=== PATIENT | male | born 1950 | race Caucasian/White ===

== ENCOUNTER 2019-11-12 09:57 | Inpatient (IN) | payer MEDICARE ==
[~2019-11-12] VITALS: Ht 177.8 cm; Wt 84.1 kg
--- NOTE | ~2019-11-12 | EC ---
PATIENT:MARIA ELENA ZALDIVAR DATE OF SERVICE: 11/12/19 SEX: M MEDICAL RECORD: [id number] DATE OF : [birth year] LOCATION:D.M2 D.212 AGE OF PATIENT: 69 ADMISSION DATE: 11/12/19 REFERRING PHYSICIAN: INTERPRETING PHYSICIAN: LENNY ERWIN MD ECHOCARDIOGRAM REPORT ECHO CHARGES 4 ECHO COMPLETE Date: 11/13/19 CLINICAL DIAGNOSIS: ATRIAL FIB ECHOCARDIOGRAPHIC MEASUREMENTS (adult normal given) AC root (d.<3.7cm) 3.3 cm LV Septum d (<1.2 cm> 10 cm Valve Excursion 1.4 cm LV Septum (systole) 1.3 cm Left Atria (s.<4.0cm> 5.2 cm LVPW d(<1.2cm) 0.90 cm RV (d.<2.3cm) 5.6 cm LVPW (sytole) 1.0 cm LV diastole(<5.6CM) 7.7 cm MV E-F(>70mm/sec) cm LV systole 6.5 cm LVOT Diameter 2.3 cm MV exc.(>10mm) 2.4 cm Est.ejection fraction (50-75%) % DOPPLER: LVIT cm/sec A cm/sec E cm/sec LA cm/sec RVSP 29 mmHg LVOT 91 cm/sec AOP1/2T m/s Asc. Ao 123 cm/sec RVOT 47 cm/sec RA cm/sec PA cm/sec AV Gradient Peak 6.07 mmHg AV Mean 3.90 mmHg AV Area 2.7 cm MV Gradient Peak 7.36 mmHg MV Mean 2.02 mmHg MV Area cm COMMENTS: Pharmacy Stock Clerk: Ammon COPELAND Rn Transplant: 1 Dr. Erwin TAPE# PACS Pericardial Effusion N DATE OF SERVICE: 11/13/2019 ECHOCARDIOGRAM FINDINGS: 1. Left ventricular chamber size is moderate to severely dilated. Left ventricular systolic function is severely reduced at 25% to 30%. 2. Left atrium is enlarged at 5.2 cm. Right atrium and right ventricular chamber sizes are as well moderately dilated. 3. Valvular structures have normal structure and motion. ECHOCARDIOGRAM REPORT [id number] MARIA ELENA ZALDIVAR 4. Doppler interrogation reveals moderate mitral regurgitation, zulk-ow-[id number] tricuspid regurgitation. No other valvular insufficiency or stenosis. Pulmonary systolic pressure is preserved at 29 mmHg. 5. No evidence of pericardial effusion or left ventricular thrombus. 6. The patient is in atrial fibrillation during the study. TRANSINT:[id number] Voice Confirmation ID: [id number] DOCUMENT ID: [id number] LENNY ERWIN MD CC: [id number] DICTATION DATE: 11/13/19 1639 AUTO DISMANTLER: 11/14/19 0031 ADM IN [facility] [address] [id number]
[~2019-11-12 09:57] MED LIST: FERROUS SULFAT325 MG PO; LASIX20 MG PO; MAGNESIUM OXID500 MG PO; MILK THISTLE PO; POTASSIUM99 M1 PO; [UNRECOGNIZED DRUG - OTHER]; [UNRECOGNIZED DRUG - OTHER] PO
[2019-11-12 10:24] LABS: BASOPHILS 0.2 % (0-2); EOSINOPHILS 0.3 % (0-7); HEMOGLOBIN 10.2 g/dL (13.5-17.5); IMMATURE GRANULOCYTES 0.2 % (0-5); LYMPHOCYTES 9.2 % (15-50); MCH 24.4 pg (26.0-34.0); MCV 81.3 fL (80.0-100.0); MONOCYTES 9.3 % (2-11); NEUTROPHILS 80.8 % (40-80); RBC 4.18 10x6/uL (4.20-6.10); WBC 9.5 10x3/uL (4.8-10.8)
[2019-11-12 10:26] LABS: PLATELET COUNT 163 10x3/uL (130-400)
[2019-11-12 10:31] LABS: CALC OSMOLALITY 275 mosm/kg (275-300); CALCIUM 8.8 mg/dL (8.5-10.1); CARBON DIOXIDE 22.1 mmol/L (21.0-32.0); CHLORIDE - SERUM 100 mmol/L (98-107); CREATININE - SERUM 1.5 mg/dL (0.6-1.3); GLUCOSE 150 mg/dL (74-106); POTASSIUM - SERUM 4.4 mmol/L (3.5-5.1); SODIUM 132 mmol/L (136-145); UREA NITROGEN 34 mg/dL (7-18); eGFR NON AFRICAN AMERICAN 49 mL/min (90-120)
[2019-11-12 10:37] LABS: APTT 28.8 SECONDS (22.8-39.4); INR 1.4 (0.85-1.17)
[2019-11-12 10:48] LABS: ALBUMIN 3.5 g/dL (3.4-5.0); ALKALINE PHOSPHATASE 101 U/L (30-120); ALT (SGPT) 81 U/L (10-68); BILIRUBIN - TOTAL 1.98 mg/dL (0.2-1.3); CKMB 2.1 U/L (0.0-3.6); CREATINE KINASE 214 UL (21-232); LIPASE 324 U/L (73-393); PRO BNP 5082 pg/mL (0-125); PROTEIN - SERUM 7.3 g/dL (6.4-8.2); TROPONIN-I 0.029 ng/mL (0.000-0.060)
[2019-11-12 13:05] VITALS: BP 119/65
--- NOTE | 2019-11-12 14:10 | NUR ---
RECIEVED TELEPHONE REPORT
[2019-11-12 14:31] VITALS: BP 107/51
[2019-11-12 14:49] LABS: % SATURATION 5 % (15-55); IRON 27 ug/dl (35-150); TOTAL IRON BIND CAPACITY 479 ug/dl (260-445)
[2019-11-12 14:55] LABS: UNSAT IRON BIND CAPACITY 452 ug/dl (150-375)
[2019-11-12 18:37] VITALS: BP 109/62
[2019-11-12 20:00] VITALS: BP 122/69
--- NOTE | 2019-11-12 20:00 | NUR ---
REPORT RECIEVED AND INITIAL ROUNDS COMPLETED. PT RESTING IN BED WITH NO DISTRESS. SEE SHIFT ASSESSMENT. CPOC. CALL LIGHT IN REACH. SR UP X 2.
[2019-11-13] VITALS: BP 124/80
[2019-11-13 04:00] VITALS: BP 117/69; BP 24/80; BMI 26.6
[2019-11-13 06:27] LABS: ALBUMIN 3.1 g/dL (3.4-5.0); ANION GAP 16.2 mmol/L (8-16); BILIRUBIN - TOTAL 1.45 mg/dL (0.2-1.3); CALCIUM 7.9 mg/dL (8.5-10.1); CARBON DIOXIDE 19.6 mmol/L (21.0-32.0); CREATININE - SERUM 1.4 mg/dL (0.6-1.3); POTASSIUM - SERUM 3.8 mmol/L (3.5-5.1); PROTEIN - SERUM 6.4 g/dL (6.4-8.2)
--- NOTE | 2019-11-13 07:00 | NUR ---
WALKING ROUNDS COMPLETED AND REPORT GIVEN TO DAY NURSE. PT RESTING IN BED. NO DISTRESS. CPOC.
[2019-11-13 07:27] LABS: HEMATOCRIT 31.3 % (42.0-54.0); HEMOGLOBIN 9.5 g/dL (13.5-17.5); MCH 24.3 pg (26.0-34.0); MCHC 30.4 g/dL (31.0-37.0); MCV 80.1 fL (80.0-100.0); PLATELET COUNT 128 10x3/uL (130-400); RBC 3.91 10x6/uL (4.20-6.10); RDW 17.9 % (11.5-14.5); WBC 8.7 10x3/uL (4.8-10.8)
--- NOTE | 2019-11-13 08:33 | NUR ---
PT RUFUSED TO TAKE LASIX, PT STATED THAT IT MAKES HIM HAVE BLACK STOOLS AND ALSO CAUSES HIS THROAT TO CLOSE BUT IT IS ONLY WITH THE PO LASIX NOT IV LASIX, WILL NOTIFY DOCTOR. PT DENIES ANY NEEDS AT THIS TIME. A/O X4, RESP EVEN AND NONLABORED ON RA. RT FA IV SL. BEDSIDE RAILS X2, CALL LIGHT IN REACH, NAD NOTED,W ILL CONTINUE TO MONITOR.
[2019-11-13 08:43] VITALS: BP 119/63
[2019-11-13 10:20] LABS: ANISOCYTOSIS OCC; CRENATED CELLS OCC; LYMPHOCYTES 10 % (15-50); MONOCYTES 6 % (2-11); NEUTROPHILS 82 % (40-80); PLATELET ESTIMATE NORMAL
[2019-11-13 12:16] VITALS: BP 120/66
[2019-11-13 15:47] VITALS: BP 124/61
--- NOTE | 2019-11-13 18:38 | NUR ---
LASIX GIVEN ORDRED. PT RESTING COMFORTABLY IN BED, DENIES ANY NEEDS AT THIS TIME. CALL LIGHT IN REACH, NAD NOTED.
--- NOTE | 2019-11-13 19:00 | NUR ---
EVENING ROUNDS COMPLETE. PT SITTING UP IN BED. NO SIGNS OF DISTRESS. AAOX4. PT DENIES ANY NEEDS AT THIS TIME. REQUEST FOR TYLENOL WITH HS MEDICATION. WILL HAVE TO PAGE PHP MYSQL WEB DEVELOPER LEGAL RESEARCHER FOR ORDER DUE TO TYLENOL NOT BEING ON PT EMAR. CL IN REACH, BED IN LOWEST POSITION.
--- NOTE | 2019-11-13 19:45 | NUR ---
FABIEN LAWRENCE ORDERED 650 TYLENOL PO, Q6 PRN.
[2019-11-13 20:34] VITALS: BP 101/69
[2019-11-14] VITALS (12 sets, daily range): BP systolic 93–124; BP diastolic 56–88; Ht 177.8 cm; Wt 84.1 kg
[2019-11-14 06:22] LABS: BASOPHILS 0.2 % (0-2); EOSINOPHILS 0.2 % (0-7); HEMATOCRIT 29.5 % (42.0-54.0); HEMOGLOBIN 9.1 g/dL (13.5-17.5); IMMATURE GRANULOCYTES 0.2 % (0-5); LYMPHOCYTES 11.1 % (15-50); MCH 24.3 pg (26.0-34.0); MCHC 30.8 g/dL (31.0-37.0); MCV 78.7 fL (80.0-100.0); MONOCYTES 9.2 % (2-11); NEUTROPHILS 79.1 % (40-80); RBC 3.75 10x6/uL (4.20-6.10); RDW 17.9 % (11.5-14.5)
[2019-11-14 06:25] LABS: BILIRUBIN - TOTAL 1.17 mg/dL (0.2-1.3); CARBON DIOXIDE 20.3 mmol/L (21.0-32.0); CREATININE - SERUM 1.3 mg/dL (0.6-1.3); POTASSIUM - SERUM 3.3 mmol/L (3.5-5.1); PROTEIN - SERUM 6.2 g/dL (6.4-8.2)
[2019-11-14 06:28] LABS: PLATELET COUNT 91 10x3/uL (130-400); WBC 5.7 10x3/uL (4.8-10.8)
--- NOTE | 2019-11-14 09:28 | NUR ---
AM MEDS GIVEN AT THIS TIME. ALSO GAVE 40MEQ OF K FOR LOW K. PT A/O X4, RT FA IV SL. PT DENIES ANY NEEDS AT THIS TIME. CALL LIGHT IN REACH, NAD NOTED, WILL CONTINUE TO MONITOR.
[2019-11-14 09:33] LABS: PLATELET ESTIMATE DECREASED
--- NOTE | 2019-11-14 10:27 | NUR ---
PT TO CT.
--- NOTE | 2019-11-14 11:43 | NUR ---
RECEIVED PT BACK TO ROOM 2126. TOTAL FLUID REMOVED WAS 1250ML. VITALS SIGNS STABLE, PLACED PT ON FREQUENT VITAL SIGNS. PT STATES THAT HE WANTS A CLEAR LIQUID OR FULL LIQUID DIET SINCE HE IS NOT ABLE TO EAT REGULAR FOOD. INCISION NOTED TO RT SIDE OF ABD. PT DENIES ANY NEEDS AT THIS TIME. CALL LIGHT IN REACH, NAD NOTED, WILL CONTINUE TO MONITOR.
[2019-11-14 12:31] LABS: PROTEIN - BODY FLUID 0.8 G/DL
[2019-11-14 18:42] LABS: EOS BF 2 %; MACROPHAGES BF 22 %; MESOTHELIALS BF 4 %; NEUT - BF 30 %
--- NOTE | 2019-11-14 19:00 | NUR ---
EVENING ROUNDS COMPLETE. PT SITTING UP IN BED. NO SIGNS OF DISTRESS. PT DENIES ANY PAIN OR NEEDS AT THIS TIME. CL IN REACH, BED IN LOWEST POSITION.
[2019-11-15 00:26] VITALS: BP 94/67
[2019-11-15 05:45] LABS: BASOPHILS 0.2 % (0-2); EOSINOPHILS 0.4 % (0-7); HEMATOCRIT 30.4 % (42.0-54.0); HEMOGLOBIN 9.2 g/dL (13.5-17.5); IMMATURE GRANULOCYTES 0.2 % (0-5); LYMPHOCYTES 14.1 % (15-50); MCH 24.1 pg (26.0-34.0); MCHC 30.3 g/dL (31.0-37.0); MCV 79.8 fL (80.0-100.0); MONOCYTES 12.9 % (2-11); NEUTROPHILS 72.2 % (40-80); PLATELET COUNT 86 10x3/uL (130-400); RBC 3.81 10x6/uL (4.20-6.10); RDW 17.8 % (11.5-14.5); WBC 5.2 10x3/uL (4.8-10.8)
[2019-11-15 05:59] LABS: ALBUMIN 2.8 g/dL (3.4-5.0); ANION GAP 14.7 mmol/L (8-16); BILIRUBIN - TOTAL 0.94 mg/dL (0.2-1.3); CALCIUM 7.5 mg/dL (8.5-10.1); CARBON DIOXIDE 18.7 mmol/L (21.0-32.0); CREATININE - SERUM 1.4 mg/dL (0.6-1.3); POTASSIUM - SERUM 3.4 mmol/L (3.5-5.1); PROTEIN - SERUM 6.2 g/dL (6.4-8.2)
[2019-11-15 06:00] VITALS: BP 100/60
--- NOTE | 2019-11-15 08:30 | NUR ---
PT A LITTLE SOB AFTER GETTING BACK TO BED FROM THE BATHROOM, PLACED ON 2L PRN FOR SOB. INFORMED PT THAT HE DOES NOT HAVE TO WEAR THE O2 ALL THE TIME JUST WHEN HE FEELS SOB. PT'S VITAL SIGNS STABLE, DENIES ANY OTHER NEEDS AT THIS TIME. CALL LIGHT IN REACH, NAD NOTED, WILL CONTINUE TO MONITOR.
--- NOTE | 2019-11-15 09:37 | NUR ---
AM MEDS GIVEN AT THIS TIME. PT A/O X4, RESP EVEN AND NONLABORED ON RA. RT FA IV SL. RESP EVEN AND NONLABORED ON RA. PT DENIES ANY NEEDS AT THIS TIME. CALL LIGHT IN REACH, NAD NOTED, WILL CONTINUE TO MONITOR.
[2019-11-15 11:29] VITALS: BP 118/62
[2019-11-15 14:09] LABS: FUNGUS STAIN Final report (())
--- NOTE | 2019-11-15 14:30 | NUR ---
PT RESTING COMFORTABLY IN BED, DENIES ANY NEEDS AT THIS TIME. CALL LIGHT IN REACH, NAD NOTED,W ILL CONTINUE TO MONITOR.
[2019-11-15 15:19] VITALS: BP 105/61
--- NOTE | 2019-11-15 17:34 | MORECARE ---
CASE MANAGEMENT DISCHARGE SUMMARY PATIENT: MARIA ELENA ZALDIVAR UNIT: [id number] ADM DATE: 11/12/19 AGE: 69 : 49 SEX: M ROOM/BED: D.2725 AUTHOR: MENG STUART PHYSICIAN: REFERRING PHYSICIAN: RODOLFO MAYES MD DATE OF SERVICE: 11/15/19 Discharge Plan Patient Name: MARIA ELENA ZALDIVAR Facility: [facility] : 1950 Planned Disposition: Nursing Facility [facility] Cert Anticipated Discharge Date: Discharge Date: Expected LOS: Initial Reviewer: [email or web address] Initial Review Date: 11/15/2019 Generated: 11/15/19 6:33 pm Comments DCP- Discharge Planning Updated by [email or web address]: Aki Bonilla on 11/15/19 4:[address] Patient Name: MARIA ELENA ZALDIVAR Admission Status: ER Accout number: [id number] Admission Date: 11-12-2019 : 1950 Admission Diagnosis: Attending: ERINN Current LOS: 3 Anticipated DC Date: Planned Disposition: Nursing Facility [facility] Cert Primary Insurance: MEDICARE A & B PLANNED EXTERNAL PROVIDER: [facility], LONG TERM CARE MEDICAID BED Discharge Planning Comments: CM RECEIVED REQUEST TO SPEAK TO PT, MET WITH PT, PT REQUESTED HOSPICE AND NUSING HOME PLACEMENT. PROVIDER LISTING GIVEN, PT HAS NO PROVIDER CHOICE. CHOICE LETTER COMPLETED. CM FAXED RERFERRALS TO [facility] FOR PLACEMENT AND [facility] FOR HOSPICE EVALUATION. CM TO FOLLOW AND ASSIST. Lead Machinist: Aki Bonilla External Providers External Provider: [facility] *(provides inpt [facility] Next Contact Date: 11/15/2019 Service Request Date: Service Type: Resolution: Reviewer: Comments: External Provider: [facility] Next Contact Date: 11/15/2019 Service Request Date: Service Type: Resolution: Reviewer: Comments: Patient Name: MARIA ELENA ZALDIVAR Page [phone] at 1734 All edits/amendments must be made on the electronic document DICTATION DATE: 11/15/19 1733 CONTRACT NEGOTIATOR: AMA 11/15/19 173 RPT#: [id number] DC DATE: STATUS: ADM IN [facility] [address] [place] [address] END OF REPORT
[2019-11-15 20:00] VITALS: BP 108/72
[2019-11-16] VITALS: BP 93/63
[2019-11-16 04:00] VITALS: BP 93/57
--- NOTE | 2019-11-16 09:30 | MORECARE ---
CASE MANAGEMENT DISCHARGE SUMMARY PATIENT: MARIA ELENA ZALDIVAR UNIT: [id number] ADM DATE: 11/12/19 AGE: 69 : 49 SEX: M ROOM/BED: D.3686 AUTHOR: NARCISO,DOC PHYSICIAN: REFERRING PHYSICIAN: RODOLFO MAYES MD DATE OF SERVICE: 11/16/19 Discharge Plan Patient Name: MARIA ELENA ZALDIVAR Facility: [facility]:[place] : 1950 Planned Disposition: Nursing Facility [facility] Cert Anticipated Discharge Date: Discharge Date: Expected LOS: Initial Reviewer: [email or web address] Initial Review Date: 11/15/2019 Generated: 11/16/19 10:30 am Comments DCP- Discharge Planning Updated by [email or web address]: Aki Bonilla on 11/15/19 4:[address] Patient Name: MARIA ELENA ZALDIVAR Admission Status: ER Accout number: [id number] Admission Date: 11-12-2019 : 1950 Admission Diagnosis: Attending: ERINN Current LOS: 3 Anticipated DC Date: Planned Disposition: Nursing Facility [facility] Cert Primary Insurance: MEDICARE A & B PLANNED EXTERNAL PROVIDER: [facility], LONG TERM CARE MEDICAID BED Discharge Planning Comments: CM RECEIVED REQUEST TO SPEAK TO PT, MET WITH PT, PT REQUESTED HOSPICE AND NUSING HOME PLACEMENT. PROVIDER LISTING GIVEN, PT HAS NO PROVIDER CHOICE. CHOICE LETTER COMPLETED. CM FAXED RERFERRALS TO [facility] FOR PLACEMENT AND [facility] FOR HOSPICE EVALUATION. CM TO FOLLOW AND ASSIST. Roller Painter: Aki Bonilla DCPIA - Discharge Planning Initial Assessment Updated by [email or web address]: Aki Bonilla on 11/16/19 9:29 am * Is the patient Alert and Oriented? Yes * How many steps to enter\exit or inside your home? * PCP DR. MAYES * Pharmacy [facility] [address] * Preadmission Environment Home Alone * ADLs Independent * Equipment Cane * Other Equipment NO MEDICAL EQUIPMENT PROVIDER PREFERNECE * List name and contact numbers for known caregivers / representatives who currently or will assist patient after discharge: DANO HAYNES, FRIEND / MEDICAL POA, * Verbal permission to speak to the caregivers and representatives has been obtained from the patient. Yes * Community resources currently utilized None * Please name any agencies selected above. NONE * Additional services required to return to the preadmission environment? Yes * Can the patient safely return to the preadmission environment? Yes * Has this patient been hospitalized within the prior 30 days at any hospital? Yes Coverage Notice Reviewer: [email or web address] Mike Bonilla Notice Issued Date-Time: 11/15/2019 11:40 Notice Type: IM Discharge Notice Notice Delivered To: Patient Relationship to Patient: Silk Screen Frame Assembler Name: Delivery Method: HAND - Hand Delivered Chiquita Days: Prior Verbal Notification: Recipient Understood Notice: Yes Recipient Signature: Yes Med Rec Note Co-signed by Attending: Coverage Notice Comment: Reviewer: [email or web address] Mike Bonilla Notice Issued Date-Time: 11/15/2019 11:40 Notice Type: Patient Choice Letter Notice Delivered To: Patient Relationship to Patient: Silk Screen Frame Assembler Name: Delivery Method: HAND - Hand Delivered Chiquita Days: Prior Verbal Notification: Recipient Understood Notice: Yes Recipient Signature: Yes Med Rec Note Co-signed by Attending: Coverage Notice Comment: [facility] Last DP export: 11/15/19 4:34 pm Patient Name: MARIA ELENA ZALDIVAR Page [phone] at 0930 All edits/amendments must be made on the electronic document DICTATION DATE: 11/16/19929 FIRE CREW WORKER: AMA 11/16/19929 RPT#: [id number] DC DATE: STATUS: ADM IN [facility] [address] [place] [address] END OF REPORT
--- NOTE | 2019-11-16 09:44 | MORECARE ---
CASE MANAGEMENT DISCHARGE SUMMARY PATIENT: MARIA ELENA ZALDIVAR UNIT: [id number] ADM DATE: 11/12/19 AGE: 69 : 49 SEX: M ROOM/BED: D.9356 AUTHOR: NARCISO,DOC PHYSICIAN: REFERRING PHYSICIAN: RODOLFO MAYES MD DATE OF SERVICE: 11/16/19 Discharge Plan Patient Name: MARIA ELENA ZALDIVAR Facility: [facility]:[place] : 1950 Planned Disposition: Nursing Facility [facility] Cert Anticipated Discharge Date: Discharge Date: Expected LOS: Initial Reviewer: [email or web address] Initial Review Date: 11/15/2019 Generated: 11/16/19 10:43 am Comments DCP- Discharge Planning Updated by [id number]: Aki Li on 11/16/19 8:[address] Patient Name: MARIA ELENA ZALDIVAR Admission Status: ER Accout number: [id number] Admission Date: 11-12-2019 : 1950 Admission Diagnosis: Attending: ERINN Current LOS: 3 Anticipated DC Date: Planned Disposition: Nursing Facility [facility] Cert Primary Insurance: MEDICARE A & B PLANNED EXTERNAL PROVIDER: [facility], LONG TERM CARE MEDICAID BED Discharge Planning Comments: CM RECEIVED REQUEST TO SPEAK TO PT, MET WITH PT, PT REQUESTED HOSPICE AND NUSING HOME PLACEMENT. PROVIDER LISTING GIVEN, PT HAS NO PROVIDER CHOICE. CHOICE LETTER COMPLETED. CM FAXED RERFERRALS TO [facility] FOR PLACEMENT AND [facility] FOR HOSPICE EVALUATION. CM TO FOLLOW AND ASSIST. Combination Window Installer: Aki Li Appended by Aki Li on 11/16/2019 9:41 FIELD CANE SCALE CLERK: LATE ENTRY: IMPORTANT MESSAGE FROM MEDICARE PROVIDED AND EXPLAINED. TALHA LI CASE MONTY DCP- Discharge Planning Updated by [email or web address]: Aki Li on 11/16/19 8:[address] Patient Name: MARIA ELENA ZALDIVAR Encounter No: [id number] : 1950 Primary Insurance: MEDICARE A & B Anticipated DC Date: Planned Disposition: Nursing Facility [facility] Cert External Planned Provider: [facility], LONG TERM CARE MEDICAID BED DCP follow-up note: CM SPOKE TO FABIEN ROSENBERG OF CARDIOLOGY WHO SUGGESTED PT HAVING A DRAIN FOR BREATHING COMFORT WHILE ON HOSPICE. CM RECEIVED CALL FROM NICKOLAS OF [facility], , THEY CAN ADMIT PT AT [facility]. HOSPICE TO MEET WITH PT TODAY TO SIGN LEGALS, PT WANTS HIS FRIEND DANO TO BE PRESENT DURING SIGNING. NICKOLAS DISCUSSED NEED OF PLUREX DRAIN AND INFORMED CM THAT HE COULD HAVE ONE ON HOSPICE BUT IT WOULD NEED TO BE DONE PRIOR TO ADMISSION TO HOSPICE. CM RECEIVED CALL FROM KERI OF [facility], , THEY DID RECEIVE REFERRAL AND ARE SCREENING FOR LONG-TERM CARE ADMISSION WITH [facility]. CM WAITING ADMISSION DETERMINATION FROM [facility] FOR LONG-TERM CARE WITH HOSPICE. [facility] CAN ADMIT AND DOES SUGGEST A DRAIN FOR PT'S COMFORT. Aki Li, CASE MANAGEMENT DCPIA - Discharge Planning Initial Assessment Updated by [id number]: Aki Li on 11/16/19 9:29 am * Is the patient Alert and Oriented? Yes * How many steps to enter\exit or inside your home? * PCP DR. MAYES * Pharmacy [facility] [address] * Preadmission Environment Home Alone * ADLs Independent * Equipment Cane * Other Equipment NO MEDICAL EQUIPMENT PROVIDER PREFERNECE * List name and contact numbers for known caregivers / representatives who currently or will assist patient after discharge: DANO DALLAS, FRIEND / MEDICAL POA, * Verbal permission to speak to the caregivers and representatives has been obtained from the patient. Yes * Community resources currently utilized None * Please name any agencies selected above. NONE * Additional services required to return to the preadmission environment? Yes * Can the patient safely return to the preadmission environment? Yes * Has this patient been hospitalized within the prior 30 days at any hospital? Yes Coverage Notice Reviewer: [id number] Mike Li Notice Issued Date-Time: 11/15/2019 11:40 Notice Type: IM Discharge Notice Notice Delivered To: Patient Relationship to Patient: Senior Advisory Name: Delivery Method: HAND - Hand Delivered Chiquita Days: Prior Verbal Notification: Recipient Understood Notice: Yes Recipient Signature: Yes Med Rec Note Co-signed by Attending: Coverage Notice Comment: Reviewer: [id number] Mike Li Notice Issued Date-Time: 11/15/2019 11:40 Notice Type: Patient Choice Letter Notice Delivered To: Patient Relationship to Patient: Senior Advisory Name: Delivery Method: HAND - Hand Delivered Chiquita Days: Prior Verbal Notification: Recipient Understood Notice: Yes Recipient Signature: Yes Med Rec Note Co-signed by Attending: Coverage Notice Comment: [facility] Last DP export: 11/16/19 8:30 am Patient Name: MARIA ELENA ZALDIVAR Page [phone] at 0944 All edits/amendments must be made on the electronic document DICTATION DATE: 11/16/19942 EXPANDER MACHINE OPERATOR: DM 11/16/19942 RPT#: [id number] DC DATE: STATUS: ADM IN [facility] [address] [place] [address] END OF REPORT
[2019-11-16 10:00] VITALS: BP 102/61
--- NOTE | 2019-11-16 12:21 | NUR ---
HOSPICE IN TO SEE PT. PT AND HOSPICE DULCE MARIA ZAVALA REQUEST FOR PERITONEAL DRAIN FOR PT. COMFORT BEFORE D/C TO HOSPICE AND NURSING FACILITY.
--- NOTE | 2019-11-16 13:36 | NUR ---
Nutrition Follow-up: Nauseated by the smell of food. Eating small amt of full liquids. Drinking Nepro with meals. Noted hospice consulted. Diet: Full Liquid, Nepro TID Wt: 188.6# (3/); 188# (/) Labs reviewed Meds noted: Bumex, Lactulose -Continue current diet as tolerated. -RD following.
[2019-11-16 14:04] VITALS: BP 100/60
[2019-11-16 18:03] VITALS: BP 101/49
[2019-11-16 20:30] VITALS: BP 99/66
[2019-11-17 00:30] VITALS: BP 100/52
--- NOTE | 2019-11-17 03:40 | NUR ---
I have reviewed this patient and I concur with the Shift Assessment completed by the Licensed Practical Nurse today this shift.
[2019-11-17 04:30] VITALS: BP 95/55
[2019-11-17 10:46] VITALS: BP 98/55
--- NOTE | 2019-11-17 18:25 | NUR ---
RESP UL ON . RESTS IN BED WITH EYES CLOSED. CALL LIGHT IN REACH.
--- NOTE | 2019-11-17 19:30 | NUR ---
RECEIVED REPORT, WILL ASSUME CARE OF PT, DRAININD FLUID FROM L.SIDE INCISION, PLACED DRESSING OVER SITE, IV-RFA-SL, [id number]. ASKING FOR DIDULID, BED IS LOW, SRX2, CALL LIGHT IN REACH, WILL CONTINUE PLAN OF CARE
--- NOTE | 2019-11-17 19:37 | NUR ---
FABIEN RENO NOTIFIED OF FLUID LEAKING OUT OF PT'S THORENCITISES SITE FROM 11/15/19. ORDERS FOR DRESSING AND PAIN MEDICATION FOR COMFORT CARE. WILL CONTINUE TO MONITOR.
[2019-11-17 20:00] VITALS: BP 113/56
[2019-11-18] VITALS: BP 96/61
--- NOTE | 2019-11-18 02:23 | NUR ---
I have reviewed this patient and I concur with the Shift Assessment completed by the Licensed Practical Nurse today this shift.
[2019-11-18 04:00] VITALS: BP 94/54
--- NOTE | 2019-11-18 07:12 | NUR ---
ASSESSMENT DONE. DENIES NEEDS
[2019-11-18 09:07] VITALS: BP 88/52
--- NOTE | 2019-11-18 17:19 | NUR ---
WITHOUT CHANGES OR DISTRESS NOTED AT THIS TIME. DENIES NEEDS
--- NOTE | 2019-11-18 18:49 | NUR ---
I have reviewed this patient and I concur with the Shift Assessment completed by the Licensed Practical Nurse today this shift.
[2019-11-18 20:00] VITALS: BP 102/60
--- NOTE | 2019-11-18 22:00 | NUR ---
INITIAL ROUNDS COMPLETED AT 1915 HRS. NO DISTRESS NOTED. DILAUDID 0.5MG SIVP VIA RFA GIVEN FOR C/O ABD PAIN 05/23 AT 1947 HRS. VSS. SR PER CM HR 74. ASSESSMENT COMPLETED AT 2024 HRS. ALERT AND ORIENTED TO PERSON, PLACE AND TIME. SIMMONS. IV TO RFA SL. LUNGS DIMINISHED IN BASES BILAT. ABD DISTENDED WITH ACTIVE BS NOTED. DRESSING TO R LATERAL ABD CLEAN, DRY AND INTACT. PM MED GIVEN. PT CURRENTLY WATCHING TV. SR UP X2, CALL LIGHT WITHIN REACH.
--- NOTE | 2019-11-18 23:17 | NUR ---
DRESSING LEAKING. PT REFUSES OFFER TO CHANGE DRESSING AND GOWN. STATES HE WILL CALL WHEN HE WANTS IT DONE,.
[2019-11-19] VITALS: BP 91/51
--- NOTE | 2019-11-19 01:30 | NUR ---
PT WATCHING TV. NO DISTRESS NOTED. CALL LIGHT WITHIN REACH.
[2019-11-19 04:00] VITALS: BP 107/62
--- NOTE | 2019-11-19 05:00 | NUR ---
DRESSING TO ABD OFF AND GOWN AND BED SATURATED. ABD DRIED AND NEW DRESSING APPLIED. BED LINENS CHANGED. VSS. DILAUDID 0.5MG SIVP GIVEN FOR C/O ABD PAIN. SR UP X2, CALL LIGHT WITHIN REACH.
--- NOTE | 2019-11-19 05:58 | NUR ---
VSS THROUGHOUT NIGHT. SR PER CM. PT STATES DILAUDID HELPS CONTROL HIS PAIN. NEEDS MET; WILL CONTINUE TO MONITOR.
[2019-11-19 07:30] VITALS: BP 96/50
[2019-11-19 11:30] VITALS: BP 96/57
[2019-11-19 15:30] VITALS: BP 91/57
--- NOTE | 2019-11-19 17:30 | NUR ---
I have reviewed this patient and I concur with the Shift Assessment completed by the Licensed Practical Nurse today this shift.
--- NOTE | 2019-11-19 19:30 | NUR ---
REPORT RECIEVED AND INITIAL ROUNDS COMPLETED. DRESSING TO DRAIN SITE ON PT'S RIGHT SIDE OF ABDOMEN IS SOAKED WITH DRAINAGE. REMOVED DRESSING AND APPLIED AN OSTOMY TO THE DRAINAGE HOLE SITE TO SEE IF IT HELPS PROTECT HIS SKIN BETTER THAN THE WET DRESSINGS.
[2019-11-19 20:00] VITALS: BP 146/74
--- NOTE | 2019-11-19 21:32 | NUR ---
HAVE ADMINISTERED DILAUDID IVP FOR ABDOMINAL PAIN. DR DEUTSCH ON UNIT AND SPOKE WITH HIM ABOUT PATIENT'S ADAMANT DESIRE TO BE A DNR. ORDERS RECIEVED. RELAYED THIS INFORMATION TO PATIENT AND HE IS VERY HAPPY TO KNOW THAT NO LIFE SAVING MEASURES WILL BE TAKEN. PT STATES, "I HAVE LIVED A GOOD LIFE AND WHEN IT IS TIME TO GO, IT IS TIME TO GO".
[2019-11-20 00:01] VITALS: BP 90/56
--- NOTE | 2019-11-20 03:02 | NUR ---
RESTING IN BED WITH NO DISTRESS. OSTOMY STILL IN PLACE ON ABDOMEN COLLECTING DRAINAGE. CPOC.
[2019-11-20 06:37] LABS: BASOPHILS 0.1 % (0-2); EOSINOPHILS 1.6 % (0-7); HEMATOCRIT 32.2 % (42.0-54.0); HEMOGLOBIN 9.7 g/dL (13.5-17.5); IMMATURE GRANULOCYTES 0.1 % (0-5); LYMPHOCYTES 10.8 % (15-50); MCH 23.5 pg (26.0-34.0); MCHC 30.1 g/dL (31.0-37.0); MCV 78.2 fL (80.0-100.0); MONOCYTES 9.7 % (2-11); NEUTROPHILS 77.7 % (40-80); PLATELET COUNT 117 10x3/uL (130-400); RBC 4.12 10x6/uL (4.20-6.10); RDW 17.6 % (11.5-14.5); WBC 8.8 10x3/uL (4.8-10.8)
[2019-11-20 06:47] LABS: ANION GAP 12.4 mmol/L (8-16); CALCIUM 7.9 mg/dL (8.5-10.1); CARBON DIOXIDE 22.2 mmol/L (21.0-32.0); CREATININE - SERUM 1.3 mg/dL (0.6-1.3); POTASSIUM - SERUM 3.6 mmol/L (3.5-5.1)
[2019-11-20 09:52] VITALS: BP 89/59
[2019-11-20 11:09] LABS: FUNGUS MYCOLOGY CULTURE Preliminary report (())
--- NOTE | 2019-11-20 11:45 | MORECARE ---
CASE MANAGEMENT DISCHARGE SUMMARY PATIENT: MARIA ELENA ZALDIVAR UNIT: [id number] ADM DATE: 11/12/19 AGE: 69 : 49 SEX: M ROOM/BED: D.2126 AUTHOR: NARCISO,DOC PHYSICIAN: REFERRING PHYSICIAN: RODOLFO MAYES MD DATE OF SERVICE: 11/20/19 Discharge Plan Patient Name: MARIA ELENA ZALDIVAR Facility: [facility] : 1950 Planned Disposition: Nursing Facility [facility] Cert Anticipated Discharge Date: Discharge Date: Expected LOS: Initial Reviewer: [id number] Initial Review Date: 11/15/2019 Generated: 11/20/19 12:45 pm Comments DCP- Discharge Planning Updated by [id number]: Aki Li on 11/20/19 10:[address] Patient Name: MARIA ELENA ZALDIVAR Encounter No: [id number] : 1950 Primary Insurance: MEDICARE A & B Anticipated DC Date: Planned Disposition: Nursing Facility [facility] Cert External Planned Provider: [facility], LONG TERM CARE MEDICAID BED DCP follow-up note: CM FAXED UPDATE TO [facility] AT [phone] AND [facility] [phone]. CM SPOKE TO [facility] AND PROVIDED UPDATE. CM CALLED AND LEFT MESSAGE FOR KERI OF [facility], , THEY WILL ACCEPT FOR FURNITURE REPRODUCER CARE AT DISCHARGE. FOR DISCHARGE, FAX DISCHARGE INFORMATION TO [facility] AT [phone]. NURSE REPORT TO BE CALLED TO [facility] AT [phone]; FAX DISCHARGE INFORMATION TO [facility] AT [phone], NOTIFY OF DISCHARGE AT [phone]. HOSPICE TO ADMIT PT AFTER HIS ARRIVAL AT [facility]. LOLA Henry DCP- Discharge Planning Updated by [email or web address]: Aki Li on 11/16/19 7:[address] Patient Name: MARIA ELENA ZALDIVAR Admission Status: ER Accout number: [id number] Admission Date: 11-12-2019 : 1950 Admission Diagnosis: Attending: ERINN Current LOS: 3 Anticipated DC Date: Planned Disposition: Nursing Facility [facility] Cert Primary Insurance: MEDICARE A & B PLANNED EXTERNAL PROVIDER: [facility], LONG TERM CARE MEDICAID BED Discharge Planning Comments: CM RECEIVED REQUEST TO SPEAK TO PT, MET WITH PT, PT REQUESTED HOSPICE AND NUSING HOME PLACEMENT. PROVIDER LISTING GIVEN, PT HAS NO PROVIDER CHOICE. CHOICE LETTER COMPLETED. CM FAXED RERFERRALS TO [facility] FOR PLACEMENT AND [facility] FOR HOSPICE EVALUATION. CM TO FOLLOW AND ASSIST. Roofer Vinyl Coating: Aki Li Appended by Aki Li on 11/16/2019 9:41 PRESIDENT & CEO [employer]: LATE ENTRY: IMPORTANT MESSAGE FROM MEDICARE PROVIDED AND EXPLAINED. TALHA LI CASE MONTY DCP- Discharge Planning Updated by [id number]: Aki Li on 11/16/19 7:[address] Patient Name: MARIA ELENA ZALDIVAR Encounter No: [id number] : 1950 Primary Insurance: MEDICARE A & B Anticipated DC Date: Planned Disposition: Nursing Facility [facility] Cert External Planned Provider: [facility], LONG TERM CARE MEDICAID BED DCP follow-up note: CM SPOKE TO FABIEN ROSENBERG OF CARDIOLOGY WHO SUGGESTED PT HAVING A DRAIN FOR BREATHING COMFORT WHILE ON HOSPICE. CM RECEIVED CALL FROM NICKOLAS OF [facility], , THEY CAN ADMIT PT AT [facility]. HOSPICE TO MEET WITH PT TODAY TO SIGN LEGALS, PT WANTS HIS FRIEND DANO TO BE PRESENT DURING SIGNING. NICKOLAS DISCUSSED NEED OF PLUREX DRAIN AND INFORMED CM THAT HE COULD HAVE ONE ON HOSPICE BUT IT WOULD NEED TO BE DONE PRIOR TO ADMISSION TO HOSPICE. CM RECEIVED CALL FROM KERI OF [facility], , THEY DID RECEIVE REFERRAL AND ARE SCREENING FOR FDC CARE ADMISSION WITH [facility]. CM WAITING ADMISSION DETERMINATION FROM [facility] FOR FDC CARE WITH HOSPICE. [facility] CAN ADMIT AND DOES SUGGEST A DRAIN FOR PT'S COMFORT. LOLA Henry DCPIA - Discharge Planning Initial Assessment Updated by [id number]: Aki Li on 11/16/19 9:29 am * Is the patient Alert and Oriented? Yes * How many steps to enter\exit or inside your home? * PCP DR. MAYES * Pharmacy [facility] [address] * Preadmission Environment Home Alone * ADLs Independent * Equipment Cane * Other Equipment NO MEDICAL EQUIPMENT PROVIDER PREFERNECE * List name and contact numbers for known caregivers / representatives who currently or will assist patient after discharge: DANO HAYNES, FRIEND / MEDICAL POA, * Verbal permission to speak to the caregivers and representatives has been obtained from the patient. Yes * Community resources currently utilized None * Please name any agencies selected above. NONE * Additional services required to return to the preadmission environment? Yes * Can the patient safely return to the preadmission environment? Yes * Has this patient been hospitalized within the prior 30 days at any hospital? Yes Coverage Notice Reviewer: [id number] Li Notice Issued Date-Time: 11/15/2019 11:40 Notice Type: IM Discharge Notice Notice Delivered To: Patient Relationship to Patient: Head Turning Machine Operator Name: Delivery Method: HAND - Hand Delivered Chiquita Days: Prior Verbal Notification: Recipient Understood Notice: Yes Recipient Signature: Yes Med Rec Note Co-signed by Attending: Coverage Notice Comment: Reviewer: [id number] Li Notice Issued Date-Time: 11/15/2019 11:40 Notice Type: Patient Choice Letter Notice Delivered To: Patient Relationship to Patient: Head Turning Machine Operator Name: Delivery Method: HAND - Hand Delivered Chiquita Days: Prior Verbal Notification: Recipient Understood Notice: Yes Recipient Signature: Yes Med Rec Note Co-signed by Attending: Coverage Notice Comment: [facility] Last DP export: 11/16/19 7:44 am Patient Name: MARIA ELENA ZALDIVAR Page [id number] at 1145 All edits/amendments must be made on the electronic document DICTATION DATE: 11/20/19 1145 HIGH CLIMBER: AMA 11/20/19 1145 RPT#: [id number] DC DATE: STATUS: ADM IN [facility] [address] [place] [address] END OF REPORT
[2019-11-20 13:58] VITALS: BP 114/67
[2019-11-20 17:40] VITALS: BP 102/57
[2019-11-20 22:23] VITALS: BP 97/58
[2019-11-21 00:41] VITALS: BP 94/57
--- NOTE | 2019-11-21 03:35 | NUR ---
I have reviewed this patient and I concur with the Shift Assessment completed by the Licensed Practical Nurse today this shift.
[2019-11-21 03:53] VITALS: BP 110/59
--- NOTE | 2019-11-21 07:20 | NUR ---
RECIEVE REPORT. ALERT AND ORIENTED X4. SITTING UP IN BED. NO SIGN OF DISTRESS. CONTINUE PLAN OF CARE AND SAFETY PRECAUTIONS.
[2019-11-21 11:02] VITALS: BP 112/70
[2019-11-21 12:00] VITALS: BP 106/56
--- NOTE | 2019-11-21 15:43 | NUR ---
REPORT CALLED TO [facility], SPOKE WITH DULCE MARIA KAY. DISCHARGE INSTRUCTIONS GIVEN VERBALLY AND WRITTEN. ADMINISTER DILAUDID IV ORDERED PRIOR TO DEPARTURE. DISCHARGE PAPERS SIGNED ON CHART. DC RT AC IV TIP INTACT. WAITING FOR [facility] TRANSPORTATION.
--- NOTE | 2019-11-21 15:53 | MORECARE ---
CASE MANAGEMENT DISCHARGE SUMMARY PATIENT: MARIA ELENA ZALDIVAR UNIT: [id number] ADM DATE: 11/12/19 AGE: 69 : 49 SEX: M ROOM/BED: D.2126 AUTHOR: NARCISO,DOC PHYSICIAN: REFERRING PHYSICIAN: RODOLFO MAYES MD DATE OF SERVICE: 11/21/19 Discharge Plan Patient Name: MARIA ELENA ZALDIVAR Facility: [facility] : 1950 Planned Disposition: Nursing Facility [facility] Cert Anticipated Discharge Date: 11/21/19 Discharge Date: Expected LOS: 9 Initial Reviewer: [id number] Initial Review Date: 11/15/2019 Generated: 11/21/19 4:52 pm Comments DCP- Discharge Planning Updated by [id number]: Aki Li on 11/20/19 10:[address] Patient Name: MARIA ELENA ZALDIVAR Encounter No: [id number] : 1950 Primary Insurance: MEDICARE A & B Anticipated DC Date: Planned Disposition: Nursing Facility [facility] Cert External Planned Provider: [facility], LONG TERM CARE MEDICAID BED DCP follow-up note: CM FAXED UPDATE TO [facility] AT [phone] AND [facility] [phone]. CM SPOKE TO [facility] AND PROVIDED UPDATE. CM CALLED AND LEFT MESSAGE FOR KERI OF [facility], , THEY WILL ACCEPT FOR RETIREMENT CARE AT DISCHARGE. FOR DISCHARGE, FAX DISCHARGE INFORMATION TO [facility] AT [phone]. NURSE REPORT TO BE CALLED TO [facility] AT [phone]; FAX DISCHARGE INFORMATION TO [facility] AT [phone], NOTIFY OF DISCHARGE AT [phone]. HOSPICE TO ADMIT PT AFTER HIS ARRIVAL AT [facility]M. LOLA Henry DCP- Discharge Planning Updated by [id number]: Aki Li on 11/16/19 7:[address] Patient Name: MARIA ELENA ZALDIVAR Admission Status: ER Accout number: [id number] Admission Date: 11-12-2019 : 1950 Admission Diagnosis: Attending: ERINN Current LOS: 3 Anticipated DC Date: Planned Disposition: Nursing Facility [facility] Cert Primary Insurance: MEDICARE A & B PLANNED EXTERNAL PROVIDER: [facility], LONG TERM CARE MEDICAID BED Discharge Planning Comments: CM RECEIVED REQUEST TO SPEAK TO PT, MET WITH PT, PT REQUESTED HOSPICE AND NUSING HOME PLACEMENT. PROVIDER LISTING GIVEN, PT HAS NO PROVIDER CHOICE. CHOICE LETTER COMPLETED. CM FAXED RERFERRALS TO [facility] FOR PLACEMENT AND [facility] FOR HOSPICE EVALUATION. CM TO FOLLOW AND ASSIST. Wound/Ostomy Nurse: Aki Li Appended by Aki Li on 11/16/2019 9:41 SUPERVISOR TRAVEL INFORMATION CENTER: LATE ENTRY: IMPORTANT MESSAGE FROM MEDICARE PROVIDED AND EXPLAINED. TALHA LI CASE MONTY DCP- Discharge Planning Updated by [id number]: Aki Li on 11/16/19 7:[address] Patient Name: MARIA ELENA ZALDIVAR Encounter No: [id number] : 1950 Primary Insurance: MEDICARE A & B Anticipated DC Date: Planned Disposition: Nursing Facility [facility] Cert External Planned Provider: [facility], LONG TERM CARE MEDICAID BED DCP follow-up note: CM SPOKE TO FABIEN ROSENBERG OF CARDIOLOGY WHO SUGGESTED PT HAVING A DRAIN FOR BREATHING COMFORT WHILE ON HOSPICE. CM RECEIVED CALL FROM NICKOLAS OF [facility], , THEY CAN ADMIT PT AT [facility]. HOSPICE TO MEET WITH PT TODAY TO SIGN LEGALS, PT WANTS HIS FRIEND DANO TO BE PRESENT DURING SIGNING. NICKOLAS DISCUSSED NEED OF PLUREX DRAIN AND INFORMED CM THAT HE COULD HAVE ONE ON HOSPICE BUT IT WOULD NEED TO BE DONE PRIOR TO ADMISSION TO HOSPICE. CM RECEIVED CALL FROM KERI OF [facility], , THEY DID RECEIVE REFERRAL AND ARE SCREENING FOR WELL TESTING OPERATOR CARE ADMISSION WITH [facility]. CM WAITING ADMISSION DETERMINATION FROM [facility] FOR RETIREMENT CARE WITH HOSPICE. [facility] CAN ADMIT AND DOES SUGGEST A DRAIN FOR PT'S COMFORT. Aki Li CASE MONTY DCPIA - Discharge Planning Initial Assessment Updated by [id number]: Aki Li on 11/16/19 9:29 am * Is the patient Alert and Oriented? Yes * How many steps to enter\exit or inside your home? * PCP DR. MAYES * Pharmacy [facility] [address] * Preadmission Environment Home Alone * ADLs Independent * Equipment Cane * Other Equipment NO MEDICAL EQUIPMENT PROVIDER PREFERNECE * List name and contact numbers for known caregivers / representatives who currently or will assist patient after discharge: DANO HAYNES, FRIEND / MEDICAL POA, * Verbal permission to speak to the caregivers and representatives has been obtained from the patient. Yes * Community resources currently utilized None * Please name any agencies selected above. NONE * Additional services required to return to the preadmission environment? Yes * Can the patient safely return to the preadmission environment? Yes * Has this patient been hospitalized within the prior 30 days at any hospital? Yes Coverage Notice Reviewer: [id number] Li Notice Issued Date-Time: 11/15/2019 11:40 Notice Type: IM Discharge Notice Notice Delivered To: Patient Relationship to Patient: Woodworking Shop Laborer Name: Delivery Method: HAND - Hand Delivered Chiquita Days: Prior Verbal Notification: Recipient Understood Notice: Yes Recipient Signature: Yes Med Rec Note Co-signed by Attending: Coverage Notice Comment: Reviewer: SOFI Li Notice Issued Date-Time: 11/15/2019 11:40 Notice Type: Patient Choice Letter Notice Delivered To: Patient Relationship to Patient: Woodworking Shop Laborer Name: Delivery Method: HAND - Hand Delivered Chiquita Days: Prior Verbal Notification: Recipient Understood Notice: Yes Recipient Signature: Yes Med Rec Note Co-signed by Attending: Coverage Notice Comment: [facility] Reviewer: [id number] Li Notice Issued Date-Time: 11/21/2019 14:10 Notice Type: IM Discharge Notice Notice Delivered To: Patient Relationship to Patient: Woodworking Shop Laborer Name: Delivery Method: HAND - Hand Delivered Chiquita Days: Prior Verbal Notification: Recipient Understood Notice: Yes Recipient Signature: Yes Med Rec Note Co-signed by Attending: Coverage Notice Comment: Last DP export: 11/20/19 10:45 am Patient Name: MARIA ELENA ZALDIVAR Page [id number] at 1553 All edits/amendments must be made on the electronic document DICTATION DATE: 11/21/191551 LITHOGRAPHIC PROOFER APPRENTICE: AMA 11/21/191551 RPT#: [id number] DC DATE: STATUS: ADM IN [facility] [address] [place] [address] END OF REPORT
--- NOTE | 2019-11-21 16:00 | MORECARE ---
CASE MANAGEMENT DISCHARGE SUMMARY PATIENT: MARIA ELENA ZALDIVAR UNIT: [id number] ADM DATE: 11/12/19 AGE: 69 : 49 SEX: M ROOM/BED: D.1096 AUTHOR: NARCISO,DOC PHYSICIAN: REFERRING PHYSICIAN: RODOLFO MAYES MD DATE OF SERVICE: 11/21/19 Discharge Plan Patient Name: MARIA ELENA ZALDIVAR Facility: [facility] : 1950 Planned Disposition: Nursing Facility [facility] Cert Anticipated Discharge Date: 11/21/19 Discharge Date: Expected LOS: 9 Initial Reviewer: [id number] Initial Review Date: 11/15/2019 Generated: 11/21/19 5:00 pm Comments DCP- Discharge Planning Updated by [id number]: Aki Li on 11/21/19 3:[address] Patient Name: MARIA ELENA ZALDIVAR Encounter No: [id number] : 1950 Primary Insurance: MEDICARE A & B Anticipated DC Date: 11-21-2019 Planned Disposition: Nursing Facility [facility] Cert External Planned Provider: [facility], LONG TERM CARE MEDICAID BED DCP follow-up note: CM RECEIVED DISCHARGE INFORMATION. MET WITH PT IN ROOM, PT IN AGREEMENT WITH DISCHARGE TO [facility] TODAY WITH ADMIT TO [facility] AFTER ARRIVAL THERE. CM NOTIFIED KERI AT [facility] WHO WILL ARRANGE VAN ASSISTANT TEACHER PRIMARY BETWEEN 4 AND 5PM TODAY. CM FAXED DISCHARGE INFORMATION TO [facility] AT [phone]. CM FAXED DISCHARGE INFOMATION TO [facility] AT [phone], NOTIFIED TISH OF DISCHARGE AT [phone]. NURSE REPORT TO BE CALLED TO [facility] AT [phone]; [facility] ARRANGING VAN ASSISTANT TEACHER PRIMARY BETWEEN 4 AND 5 PM TODAY. [facility] TO ADMIT PT AFTER HIS ARRIVAL AT LONG-TERM. LOLA Henry MANAGEMENT DCP- Discharge Planning Updated by [id number]: Aki Li on 11/20/19 10:[address] Patient Name: MARIA ELENA ZALDIVAR Encounter No: [id number] : 1950 Primary Insurance: MEDICARE A & B Anticipated DC Date: Planned Disposition: Nursing Facility [facility] Cert External Planned Provider: [facility], LONG TERM CARE MEDICAID BED DCP follow-up note: CM FAXED UPDATE TO [facility] AT [phone] AND [facility] [phone]. CM SPOKE TO SALLY OF [facility] AND PROVIDED UPDATE. CM CALLED AND LEFT MESSAGE FOR KERI OF [facility], , THEY WILL ACCEPT FOR SENIOR LIVING CARE AT DISCHARGE. FOR DISCHARGE, FAX DISCHARGE INFORMATION TO [facility] AT [phone]. NURSE REPORT TO BE CALLED TO [facility] AT [phone]; FAX DISCHARGE INFORMATION TO [facility] AT [phone], NOTIFY OF DISCHARGE AT [phone]. HOSPICE TO ADMIT PT AFTER HIS ARRIVAL AT [facility]M. LOLA Henry DCP- Discharge Planning Updated by [id number]: Aki Li on 11/16/19 7:[address] Patient Name: MARIA ELENA ZALDIVAR Admission Status: ER Accout number: [id number] Admission Date: 11-12-2019 : 1950 Admission Diagnosis: Attending: ERINN Current LOS: 3 Anticipated DC Date: Planned Disposition: Nursing Facility [facility] Cert Primary Insurance: MEDICARE A & B PLANNED EXTERNAL PROVIDER: [facility], LONG TERM CARE MEDICAID BED Discharge Planning Comments: CM RECEIVED REQUEST TO SPEAK TO PT, MET WITH PT, PT REQUESTED HOSPICE AND NUSING HOME PLACEMENT. PROVIDER LISTING GIVEN, PT HAS NO PROVIDER CHOICE. CHOICE LETTER COMPLETED. CM FAXED RERFERRALS TO [facility] FOR PLACEMENT AND [facility] FOR HOSPICE EVALUATION. CM TO FOLLOW AND ASSIST. Aviation Electrician: Aki Li Appended by Aki Li on 11/16/2019 9:41 PROCESS SAFETY SPECIALIST: LATE ENTRY: IMPORTANT MESSAGE FROM MEDICARE PROVIDED AND EXPLAINED. TALHA LI CASE MANAGEMENT DCP- Discharge Planning Updated by [id number]: Aki Li on 11/16/19 7:[address] Patient Name: MARIA ELENA ZALDIVAR Encounter No: [id number] : 1950 Primary Insurance: MEDICARE A & B Anticipated DC Date: Planned Disposition: Nursing Facility [facility] Cert External Planned Provider: [facility] LONG TERM CARE MEDICAID BED DCP follow-up note: CM SPOKE TO FABIEN ROSENBERG OF CARDIOLOGY WHO SUGGESTED PT HAVING A DRAIN FOR BREATHING COMFORT WHILE ON HOSPICE. CM RECEIVED CALL FROM NICKOLAS OF [facility], , THEY CAN ADMIT PT AT [facility]. HOSPICE TO MEET WITH PT TODAY TO SIGN LEGALS, PT WANTS HIS FRIEND DANO TO BE PRESENT DURING SIGNING. NICKOLAS DISCUSSED NEED OF PLUREX DRAIN AND INFORMED CM THAT HE COULD HAVE ONE ON HOSPICE BUT IT WOULD NEED TO BE DONE PRIOR TO ADMISSION TO HOSPICE. CM RECEIVED CALL FROM KERI OF [facility], , THEY DID RECEIVE REFERRAL AND ARE SCREENING FOR SENIOR LIVING CARE ADMISSION WITH [facility]. CM WAITING ADMISSION DETERMINATION FROM [facility] FOR SENIOR LIVING CARE WITH HOSPICE. [facility] CAN ADMIT AND DOES SUGGEST A DRAIN FOR PT'S COMFORT. Aki Li, CASE MANAGEMENT DCPIA - Discharge Planning Initial Assessment Updated by [id number]: Aki iL on 11/16/19 9:29 am * Is the patient Alert and Oriented? Yes * How many steps to enter\exit or inside your home? * PCP DR. AMYES * [facility] [address] * Preadmission Environment Home Alone * ADLs Independent * Equipment Cane * Other Equipment NO MEDICAL EQUIPMENT PROVIDER PREFERNECE * List name and contact numbers for known caregivers / representatives who currently or will assist patient after discharge: DANO HAYNES, FRIEND / MEDICAL POA, * Verbal permission to speak to the caregivers and representatives has been obtained from the patient. Yes * Community resources currently utilized None * Please name any agencies selected above. NONE * Additional services required to return to the preadmission environment? Yes * Can the patient safely return to the preadmission environment? Yes * Has this patient been hospitalized within the prior 30 days at any hospital? Yes External Providers External Provider: [facility] Next Contact Date: 11/15/2019 Service Request Date: Service Type: Resolution: Reviewer: Comments: Coverage Notice Reviewer: [id number] Mike Li Notice Issued Date-Time: 11/15/2019 11:40 Notice Type: Patient Choice Letter Notice Delivered To: Patient Relationship to Patient: Guide Changer Name: Delivery Method: HAND - Hand Delivered Chiquita Days: Prior Verbal Notification: Recipient Understood Notice: Yes Recipient Signature: Yes Med Rec Note Co-signed by Attending: Coverage Notice Comment: [facility] Reviewer: [id number] Li Notice Issued Date-Time: 11/21/2019 14:10 Notice Type: IM Discharge Notice Notice Delivered To: Patient Relationship to Patient: Guide Changer Name: Delivery Method: HAND - Hand Delivered Chiquita Days: Prior Verbal Notification: Recipient Understood Notice: Yes Recipient Signature: Yes Med Rec Note Co-signed by Attending: Coverage Notice Comment: Reviewer: [id number] Li Notice Issued Date-Time: 11/15/2019 11:40 Notice Type: IM Discharge Notice Notice Delivered To: Patient Relationship to Patient: Guide Changer Name: Delivery Method: HAND - Hand Delivered Chiquita Days: Prior Verbal Notification: Recipient Understood Notice: Yes Recipient Signature: Yes Med Rec Note Co-signed by Attending: Coverage Notice Comment: Last DP export: 11/21/19 2:52 p Patient Name: MARIA ELENA ZALDIVAR Page [id number] at 1600 All edits/amendments must be made on the electronic document DICTATION DATE: 11/21/19 1600 CENTRIFUGAL OPERATOR: AMA 11/21/19 1600 RPT#: [id number] DC DATE: STATUS: ADM IN [facility] [address] [place] [address] END OF REPORT
--- NOTE | 2019-11-21 16:10 | MORECARE ---
CASE MANAGEMENT DISCHARGE SUMMARY PATIENT: MARIA ELENA ZALDIVAR UNIT: [id number] ADM DATE: 11/12/19 AGE: 69 : 48 SEX: M ROOM/BED: D.2676 AUTHOR: NARCISO,DOC PHYSICIAN: REFERRING PHYSICIAN: RODOLFO MAYES MD DATE OF SERVICE: 11/21/19 Discharge Plan Patient Name: MARIA ELENA ZALDIVAR Facility: [facility] : 1950 Planned Disposition: Nursing Facility [facility] Cert Anticipated Discharge Date: 11/21/19 Discharge Date: Expected LOS: 9 Initial Reviewer: [id number] Initial Review Date: 11/15/2019 Generated: 11/21/19 5:10 pm Comments DCP- Discharge Planning Updated by [id number]: Aki Li on 11/21/19 3:[address] Patient Name: MARIA ELENA ZALDIVAR Encounter No: [id number] : 1950 Primary Insurance: MEDICARE A & B Anticipated DC Date: 11-21-2019 Planned Disposition: Nursing Facility [facility] Cert External Planned Provider: [facility], [employer] TERM CARE MEDICAID BED DCP follow-up note: CM RECEIVED DISCHARGE INFORMATION. MET WITH PT IN ROOM, PT IN AGREEMENT WITH DISCHARGE TO [facility] TODAY WITH ADMIT TO [facility] AFTER ARRIVAL THERE. IMPORTANT MESSAGE FROM MEDICARE PROVIDED AND EXPLAINED. CM NOTIFIED KERI AT [facility] WHO WILL ARRANGE VAN MAILING SECTION CLERK BETWEEN 4 AND 5PM TODAY. CM FAXED DISCHARGE INFORMATION TO [facility] AT [phone]. CM FAXED DISCHARGE INFOMATION TO [facility] AT [phone], NOTIFIED TISH OF DISCHARGE AT [phone]. NURSE REPORT TO BE CALLED TO [facility] AT [phone]; [facility] ARRANGING VAN MAILING SECTION CLERK BETWEEN 4 AND 5 PM TODAY. [facility] TO ADMIT PT AFTER HIS [facility]IVAL AT [facility]. Aki Li, CASE MANAGEMENT DCP- Discharge Planning Updated by [id number]: Aki Li on 11/20/19 10:[address] Patient Name: MARIA ELENA ZALDIVAR Encounter No: [id number] : 1950 Primary Insurance: MEDICARE A & B Anticipated DC Date: Planned Disposition: Nursing Facility [facility] Cert External Planned Provider: [facility], LONG TERM CARE MEDICAID BED DCP follow-up note: CM FAXED UPDATE TO [facility] AT [phone] AND [facility] [phone]. CM SPOKE TO [facility] AND PROVIDED UPDATE. CM CALLED AND LEFT MESSAGE FOR KERI OF [facility], , THEY WILL ACCEPT FOR TOUR GUIDE CARE AT DISCHARGE. FOR DISCHARGE, FAX DISCHARGE INFORMATION TO [facility] AT [phone]. NURSE REPORT TO BE CALLED TO [facility] AT [phone]; FAX DISCHARGE INFORMATION TO [facility] AT [phone], NOTIFY OF DISCHARGE AT [phone]. HOSPICE TO ADMIT PT AFTER HIS ARRIVAL AT [facility]. LOLA Henry DCP- Discharge Planning Updated by [id number]: Aki Li on 11/16/19 7:[address] Patient Name: MARIA ELENA ZALDIVAR Admission Status: ER Accout number: [id number] Admission Date: 11-12-2019 : 1950 Admission Diagnosis: Attending: ERINN Current LOS: 3 Anticipated DC Date: Planned Disposition: Nursing Facility [facility] Cert Primary Insurance: MEDICARE A & B PLANNED EXTERNAL PROVIDER: [facility] LONG TERM CARE MEDICAID BED Discharge Planning Comments: CM RECEIVED REQUEST TO SPEAK TO PT, MET WITH PT, PT REQUESTED HOSPICE AND NUSING HOME PLACEMENT. PROVIDER LISTING GIVEN, PT HAS NO PROVIDER CHOICE. CHOICE LETTER COMPLETED. CM FAXED RERFERRALS TO [facility] FOR PLACEMENT AND [facility] FOR HOSPICE EVALUATION. CM TO FOLLOW AND ASSIST. Director Religious Education: Aki Li Appended by Aki Li on 11/16/2019 9:41 LADIES UNDERWEAR OPERATOR: LATE ENTRY: IMPORTANT MESSAGE FROM MEDICARE PROVIDED AND EXPLAINED. TALHA LI CASE MONTY DCP- Discharge Planning Updated by [id number]: Aki Li on 11/16/19 7:[address] Patient Name: MARIA ELENA ZALDIVAR Encounter No: [id number] : 1950 Primary Insurance: MEDICARE A & B Anticipated DC Date: Planned Disposition: Nursing Facility [facility] Cert External Planned Provider: [facility] LONG TERM CARE MEDICAID BED DCP follow-up note: CM SPOKE TO FABEIN ROSENBERG OF CARDIOLOGY WHO SUGGESTED PT HAVING A DRAIN FOR BREATHING COMFORT WHILE ON HOSPICE. CM RECEIVED CALL FROM NICKOLAS OF [facility], , THEY CAN ADMIT PT AT [facility]. HOSPICE TO MEET WITH PT TODAY TO SIGN LEGALS, PT WANTS HIS FRIEND DANO TO BE PRESENT DURING SIGNING. NICKOLAS DISCUSSED NEED OF PLUREX DRAIN AND INFORMED CM THAT HE COULD HAVE ONE ON HOSPICE BUT IT WOULD NEED TO BE DONE PRIOR TO ADMISSION TO HOSPICE. CM RECEIVED CALL FROM KERI OF [facility], , THEY DID RECEIVE REFERRAL AND ARE SCREENING FOR DETENTION CARE ADMISSION WITH [facility]. CM WAITING ADMISSION DETERMINATION FROM [facility] FOR DETENTION CARE WITH HOSPICE. [facility] CAN ADMIT AND DOES SUGGEST A DRAIN FOR PT'S COMFORT. Aki Li, CASE MANAGEMENT DCPIA - Discharge Planning Initial Assessment Updated by [id number]: Aki Li on 11/16/19 9:29 am * Is the patient Alert and Oriented? Yes * How many steps to enter\exit or inside your home? * PCP DR. MAYES * Pharm[facility] [address] * Preadmission Environment Home Alone * ADLs Independent * Equipment Cane * Other Equipment NO MEDICAL EQUIPMENT PROVIDER PREFERNECE * List name and contact numbers for known caregivers / representatives who currently or will assist patient after discharge: DANO GONZALEZD, FRIEND / MEDICAL POA, * Verbal permission to speak to the caregivers and representatives has been obtained from the patient. Yes * Community resources currently utilized None * Please name any agencies selected above. NONE * Additional services required to return to the preadmission environment? Yes * Can the patient safely return to the preadmission environment? Yes * Has this patient been hospitalized within the prior 30 days at any hospital? Yes External Providers External Provider: [facility] *(provides [facility] Next Contact Date: 11/15/2019 Service Request Date: Service Type: Resolution: Reviewer: Comments: Coverage Notice Reviewer: [id number] - Aki Li Notice Issued Date-Time: 11/15/2019 11:40 Notice Type: Patient Choice Letter Notice Delivered To: Patient Relationship to Patient: Associate Professor Of Counseling Name: Delivery Method: HAND - Hand Delivered Chiquita Days: Prior Verbal Notification: Recipient Understood Notice: Yes Recipient Signature: Yes Med Rec Note Co-signed by Attending: Coverage Notice Comment: SADIE ADHIKARI [facility] Reviewer: [id number] Mike Li Notice Issued Date-Time: 11/21/2019 14:10 Notice Type: IM Discharge Notice Notice Delivered To: Patient Relationship to Patient: Associate Professor Of Counseling Name: Delivery Method: HAND - Hand Delivered Chiquita Days: Prior Verbal Notification: Recipient Understood Notice: Yes Recipient Signature: Yes Med Rec Note Co-signed by Attending: Coverage Notice Comment: Reviewer: [id number] Mike Li Notice Issued Date-Time: 11/15/2019 11:40 Notice Type: IM Discharge Notice Notice Delivered To: Patient Relationship to Patient: Associate Professor Of Counseling Name: Delivery Method: HAND - Hand Delivered Chiquita Days: Prior Verbal Notification: Recipient Understood Notice: Yes Recipient Signature: Yes Med Rec Note Co-signed by Attending: Coverage Notice Comment: Last DP export: 11/21/19 3:00 p Patient Name: MARIA ELENA ZALDIVAR Page [id number] at 1610 All edits/amendments must be made on the electronic document DICTATION DATE: 11/21/19 1610 APIGEE DEVELOPER: AMA 11/21/19 1610 RPT#: [id number] DC DATE: STATUS: ADM IN [facility] [address] [place] [address] END OF REPORT
[2019-11-21 17:42] VITALS: BP 141/72
== END 2019-11-21 17:33 | disposition home health service (06) | DRG 432 ==
LOC: D.ER 09:57 → D.M2 12:46
PROVIDERS: Family Medicine; General Practice; Internal Medicine Gastroenterology; Legal Medicine; ADMIT Emergency Medicine; ATTEND Emergency Medicine
PROC: 0W9G3ZZ Drainage of Peritoneal Cavity, Percutaneous Approach (ICD-10-PCS; principal; 2019-11-14 11:35)
PROC: 0HQ7XZZ Repair Abdomen Skin, External Approach (ICD-10-PCS; 2019-11-20)
DX: K74.60 Unspecified cirrhosis of liver (principal); E43 Unspecified severe protein-calorie malnutrition; I50.23 Acute on chronic systolic (congestive) heart failure; K76.7 Hepatorenal syndrome; K72.00 Acute and subacute hepatic failure without coma; R18.8 Other ascites; N17.9 Acute kidney failure, unspecified; I85.00 Esophageal varices without bleeding; E87.1 Hypo-osmolality and hyponatremia; I47.2 Ventricular tachycardia; B19.20 Unspecified viral hepatitis C without hepatic coma; I48.0 Paroxysmal atrial fibrillation; D64.9 Anemia, unspecified; D69.6 Thrombocytopenia, unspecified; Z87.891 Personal history of nicotine dependence; Z68.26 Body mass index [BMI] 26.0-26.9, adult